=== PATIENT | female | born 1945 | race African-American/Black ===

== ENCOUNTER 2020-08-31 14:23 | Inpatient (IN) | payer MEDICARE, MEDICAID ==
[~2020-08-31] VITALS: Ht 170.2 cm; Wt 85.3 kg
[~2020-08-31 14:23] MED LIST: AMLO5TAB88 MT; ATOR20TA65 MT; MECL-159 MT; METF-414 MT
[2020-08-31 15:45] LABS: HEMATOCRIT. 35.1 % (36.0-48.0); HEMOGLOBIN. 11.7 g/dL (12.0-16.0); LYMPHOCYTES % 36.8 % (20.0-50.0); MEAN CORPUSCULAR HEMOGLOBIN 30.1 pg (28.0-32.0); MEAN CORPUSCULAR VOLUME 90.6 fL (81.0-99.0); MEAN PLATELET VOLUME 8.1 fl (7.4-10.4); MONOCYTES % 7.8 % (2.0-8.0); NEUTROPHILS % 53.4 % (40.0-76.0); PLATELET 97 x1000/uL (130-400); RED BLOOD CELL COUNT 3.87 mill/uL (4.2-5.4); RED CELL DISTRIBUTION WIDTH 15.1 % (11.6-14.6)
[2020-08-31 15:51] LABS: CHLORIDE 108 mEq/L (98-107)
[2020-08-31 15:56] LABS: PROTHROMBIN TIME 10.3 sec (9.6-11.0)
[2020-08-31] MEDS ORDERED: FUROSEMIDE 20MG TABLET PO ONE (18:00)
[2020-08-31] MEDS ORDERED: ONDANSETRON HCL 4MG/2ML INJ IV PRN (22:00)
[2020-08-31] MEDS ORDERED: MORPHINE SULFATE 2 MG/ML CPJ (NOT FOR IM USE) IV PRN (22:00)
[2020-08-31] MEDS ORDERED: MAGNESIUM/ALUMINUM HYDROXIDE/SIMETHICONE 30ML UDC PO PRN (22:00)
[2020-08-31] MEDS ORDERED: ACETAMINOPHEN 325MG TABLET PO PRN (22:00)
[2020-08-31] MEDS ORDERED: DOCUSATE SODIUM 100MG CAPSULE PO PRN (22:00)
[2020-08-31] MEDS ORDERED: CLONIDINE 0.1MG TABLET PO PRN (22:00)
[2020-08-31] MEDS ORDERED: HYDROCODONE/ACETAMINOPHEN 5/325MG TABLET PO PRN (22:00)
[2020-08-31] MEDS ORDERED: DEXTROSE 50% WATER 50ML SYRINGE IV PRN (22:00)
[2020-08-31] MEDS ORDERED: DIPHENHYDRAMINE 50MG/ML VIAL IV PRN (22:00)
[2020-08-31] MEDS ORDERED: GUAIFENESIN 200MG/10ML SUGAR FREE UDC PO PRN (22:00)
[2020-08-31] MEDS ORDERED: HYDRALAZINE 20MG/ML VIAL IV PRN (22:00)
[2020-08-31] MEDS ORDERED: IPRATROPIUM/ALBUTEROL 0.5-3(2.5)MG/3ML NEB HHN PRN (22:00)
[2020-08-31 22:03] LABS: CLARITY URINE CLOUDY (CLEAR); COLOR URINE YELLOW (YELLOW); KETONES URINE NEGATIVE (NEGATIVE); LEUKOCYTE ESTERASE URINE 3+ (NEGATIVE); NITRITE URINE NEGATIVE (NEGATIVE); OCCULT BLOOD URINE TRACE (NEGATIVE); PROTEIN URINE TRACE (NEGATIVE); SPECIFIC GRAVITY URINE 1.012 (1.005-1.030); UROBILINOGEN URINE 0.2 E.U./dL (0.2-1.0)
[2020-08-31 22:12] LABS: OPIATES URINE SCREEN NEGATIVE (NEGATIVE)
[2020-08-31 22:14] LABS: *AMPHETAMINES SCREEN URINE NEGATIVE (NEGATIVE); *BARBITURATES SCREEN URINE NEGATIVE (NEGATIVE); *BENZODIAZEPINES SCREEN URINE NEGATIVE (NEGATIVE); *COCAINE SCREEN URINE NEGATIVE (NEGATIVE); CANNABINOID URINE SCREEN NEGATIVE (NEGATIVE); METHADONE URINE SCREEN NEGATIVE (NEGATIVE); PHENCYCLIDINE URINE SCREEN NEGATIVE (NEGATIVE)
[2020-08-31] MEDS: SODIUM CHLORIDE 0.9% INJ 3ML FLUSH IVF SCH (22:17)
[2020-09-01] MEDS: SODIUM CHLORIDE 0.9% INJ 3ML FLUSH IVF SCH ×3 (06:15→21:39)
[2020-09-01] MEDS: BLOOD SUGAR DIAGNOSTIC STRIP TEST SCH ×4 (06:18→21:39)
[2020-09-01] MEDS: INSULIN LISPRO 100 UNITS/ML SUBCUT SCH ×4 (06:23→21:45)
[2020-09-01] MEDS ORDERED: ENOXAPARIN 40MG/0.4ML SYR SUBCUT SCH (09:00)
[2020-09-01 11:06] VITALS: BP 156/72
[2020-09-01] MEDS ORDERED: ASPI-1497 PO (11:25)
[2020-09-01 12:00] VITALS: BP 159/83
[2020-09-01 14:51] LABS: BASOPHILS % 0.8 % (0.0-2.0); EOSINOPHILS % 1.7 % (0.0-5.0); HEMATOCRIT. 31.3 % (36.0-48.0); HEMOGLOBIN. 10.6 g/dL (12.0-16.0); LYMPHOCYTES % 30.4 % (20.0-50.0); MEAN CORPUSCULAR HEMOGLOBIN 30.7 pg (28.0-32.0); MEAN CORPUSCULAR VOLUME 90.8 fL (81.0-99.0); MEAN PLATELET VOLUME 7.9 fl (7.4-10.4); MONOCYTES % 7.1 % (2.0-8.0); PLATELET 83 x1000/uL (130-400); RED BLOOD CELL COUNT 3.45 mill/uL (4.2-5.4); RED CELL DISTRIBUTION WIDTH 15.3 % (11.6-14.6)
[2020-09-01 15:06] LABS: CHLORIDE 110 mEq/L (98-107)
[2020-09-01 15:16] LABS: CREATINE KINASE 69 IU/L (26-192)
[2020-09-01 15:18] LABS: CREATINE KINASE MB FRACTION 1.1 ng/mL (0.5-3.6)
[2020-09-01 16:00] VITALS: BP 144/74
[2020-09-01 17:54] LABS: T4 FREE 1.07 ng/dL (0.76-1.46)
[2020-09-01 20:00] VITALS: BP 143/75
[2020-09-01] MEDS: LORAZEPAM 2MG/ML CPJ IV PRN (22:16)
[2020-09-02] VITALS: BP 137/73
[2020-09-02 04:00] VITALS: BP 128/63
[2020-09-02] MEDS: BLOOD SUGAR DIAGNOSTIC STRIP TEST SCH ×4 (05:54→20:48)
[2020-09-02] MEDS: SODIUM CHLORIDE 0.9% INJ 3ML FLUSH IVF SCH ×3 (05:54→21:25)
[2020-09-02] MEDS: INSULIN LISPRO 100 UNITS/ML SUBCUT SCH ×4 (06:18→20:49)
[2020-09-02 08:00] VITALS: BP 131/75
[2020-09-02 12:00] VITALS: BP 146/79
[2020-09-02 16:00] VITALS: BP 151/80
[2020-09-02 20:00] VITALS: BP 143/78
[2020-09-02] MEDS: LORAZEPAM 2MG/ML CPJ IV PRN (22:20)
[2020-09-03] VITALS: BP 141/70
[2020-09-03 04:00] VITALS: BP 138/75
[2020-09-03] MEDS: SODIUM CHLORIDE 0.9% INJ 3ML FLUSH IVF SCH ×2 (05:07→14:00)
[2020-09-03] MEDS: BLOOD SUGAR DIAGNOSTIC STRIP TEST SCH ×2 (06:16→11:45)
[2020-09-03] MEDS: INSULIN LISPRO 100 UNITS/ML SUBCUT SCH ×2 (06:17→12:15)
[2020-09-03 07:55] LABS: BASOPHILS % 0.6 % (0.0-2.0); EOSINOPHILS % 2.3 % (0.0-5.0); HEMATOCRIT. 31.7 % (36.0-48.0); HEMOGLOBIN. 10.6 g/dL (12.0-16.0); LYMPHOCYTES % 37.3 % (20.0-50.0); MEAN CORPUSCULAR HEMOGLOBIN 30.3 pg (28.0-32.0); MEAN CORPUSCULAR VOLUME 90.8 fL (81.0-99.0); MEAN PLATELET VOLUME 7.9 fl (7.4-10.4); MONOCYTES % 7.7 % (2.0-8.0); NEUTROPHILS % 52.1 % (40.0-76.0); PLATELET 80 x1000/uL (130-400); RED CELL DISTRIBUTION WIDTH 15.3 % (11.6-14.6)
[2020-09-03 07:57] LABS: CHLORIDE 111 mEq/L (98-107)
[2020-09-03 08:00] VITALS: BP 146/79
[2020-09-03] MEDS ORDERED: LOSARTAN POTASSIUM 25 MG TABLET PO SCH (09:15)
[2020-09-03] MEDS ORDERED: ASPIRIN 81MG EC TABLET PO SCH (09:15)
[2020-09-03 12:00] VITALS: BP 136/81
[2020-09-03] MEDS ORDERED: CARVEDILOL 3.125 MG TABLET PO SCH (21:00)
== END 2020-09-03 16:15 | disposition home health service (06) | DRG 291 ==
LOC: ER 14:40 → MICUSO 18:48 → 5WST 09-01 08:51
PROVIDERS: ADMIT Internal Medicine; ATTEND Internal Medicine
DX: I11.0 Hypertensive heart disease with heart failure (principal); I50.21 Acute systolic (congestive) heart failure; R53.1 Weakness; D64.9 Anemia, unspecified; R42 Dizziness and giddiness; E11.9 Type 2 diabetes mellitus without complications; D69.6 Thrombocytopenia, unspecified; Z95.2 Presence of prosthetic heart valve; Z79.82 Long term (current) use of aspirin; Z79.84 Long term (current) use of oral hypoglycemic drugs; Z79.899 Other long term (current) drug therapy; M71.20 Synovial cyst of popliteal space [Baker], unspecified knee; R82.71 Bacteriuria
CPT/HCPCS: 36415; 71045; 80048; 80053; 80061; 80305; 81003; 82550; 82553; 82962; 83880; 84439; 84443; 84484; 85025; 85379; 93005; 93306; 93970; 97162; 97535; 99285; A6261; J1200; J1815; J2060

== ENCOUNTER 2020-11-16 07:33 | Emergency (ER) | payer MEDICARE, MEDICAID ==
[~2020-11-16] VITALS: Ht 165.1 cm; Wt 90.0 kg
[~2020-11-16 07:33] MED LIST changes: +ASPI-1497 PO
[2020-11-16 09:53] LABS: EOSINOPHILS % 0.7 % (0.0-5.0); HEMATOCRIT. 34.7 % (36.0-48.0); HEMOGLOBIN. 11.7 g/dL (12.0-16.0); LYMPHOCYTES % 25.6 % (20.0-50.0); MEAN CORPUSCULAR VOLUME 89.1 fL (81.0-99.0); MONOCYTES % 5.3 % (2.0-8.0); NEUTROPHILS % 66.4 % (40.0-76.0); RED CELL DISTRIBUTION WIDTH 16.7 % (11.6-14.6)
[2020-11-16 10:01] LABS: CHLORIDE 109 mEq/L (98-107)
[2020-11-16 10:56] LABS: PLATELET 127 x1000/uL (130-400)
[2020-11-16 12:50] VITALS: BP 145/71
== END 2020-11-16 13:00 | disposition left against medical advice (07) ==
LOC: ER 07:40
DX: R55 Syncope and collapse (principal); R42 Dizziness and giddiness; R11.0 Nausea; E11.9 Type 2 diabetes mellitus without complications; I10 Essential (primary) hypertension; Z98.890 Other specified postprocedural states; Z79.899 Other long term (current) drug therapy
CPT/HCPCS: 36415; 71045; 80053; 83880; 84484; 85025; 93005; 99285

== ENCOUNTER 2021-03-04 19:21 | Inpatient (IN) | payer MEDICARE, MEDICAID ==
[~2021-03-04] VITALS: Ht 170.2 cm; Wt 77.0 kg
[2021-03-04 21:34] LABS: BASOPHILS % 1.3 % (0.0-2.0); EOSINOPHILS % 0.5 % (0.0-5.0); HEMATOCRIT. 33.6 % (36.0-48.0); HEMOGLOBIN. 11.3 g/dL (12.0-16.0); LYMPHOCYTES % 23.3 % (20.0-50.0); MEAN CORPUSCULAR HEMOGLOBIN 30.6 pg (28.0-32.0); MEAN CORPUSCULAR VOLUME 90.9 fL (81.0-99.0); MEAN PLATELET VOLUME 7.8 fl (7.4-10.4); MONOCYTES % 6.7 % (2.0-8.0); NEUTROPHILS % 68.2 % (40.0-76.0); PLATELET 132 x1000/uL (130-400); RED BLOOD CELL COUNT 3.69 mill/uL (4.2-5.4); RED CELL DISTRIBUTION WIDTH 15.9 % (11.6-14.6)
[2021-03-04 21:39] LABS: CHLORIDE 108 mEq/L (98-107)
[2021-03-05] VITALS (7 sets, daily range): BP systolic 138–162; BP diastolic 74–87
[2021-03-05] MEDS ORDERED: ONDANSETRON HCL 4MG/2ML INJ IV PRN (05:30)
[2021-03-05] MEDS ORDERED: CLONIDINE 0.1MG TABLET PO PRN (05:30)
[2021-03-05] MEDS ORDERED: ACETAMINOPHEN 325MG TABLET PO PRN (05:30)
[2021-03-05] MEDS ORDERED: GUAIFENESIN 200MG/10ML SUGAR FREE UDC PO PRN (05:30)
[2021-03-05] MEDS ORDERED: MAGNESIUM/ALUMINUM HYDROXIDE/SIMETHICONE 30ML UDC PO PRN (05:30)
[2021-03-05] MEDS ORDERED: DOCUSATE SODIUM 100MG CAPSULE PO PRN (07:00)
[2021-03-05] MEDS: ENOXAPARIN 40MG/0.4ML SYR SUBCUT SCH (08:24)
[2021-03-05] MEDS ORDERED: DEXTROSE 50% WATER 50ML SYRINGE IV PRN (08:45)
[2021-03-05] MEDS: BLOOD SUGAR DIAGNOSTIC STRIP TEST SCH ×4 (09:27→20:05)
[2021-03-05] MEDS: AMLODIPINE 10MG TABLET PO SCH (09:31)
[2021-03-05] MEDS ORDERED: MECLIZINE 25MG TABLET PO PRN (10:15)
[2021-03-05] MEDS: INSULIN LISPRO (HIGH DOSE) 100 UNITS/ML SUBCUT SCH ×3 (12:19→20:06)
[2021-03-05] MEDS: METFORMIN HCL 500MG TABLET PO SCH (17:07)
[2021-03-05] MEDS ORDERED: ATORVASTATIN CALCIUM 20MG TABLET PO SCH (21:00)
[2021-03-06] VITALS: BP_SYST 138; BP_SYST 148; BP_SYST 157; BP_DIAS 90
[2021-03-06] MEDS: BLOOD SUGAR DIAGNOSTIC STRIP TEST SCH (00:44)
[2021-03-06] MEDS: INSULIN LISPRO (HIGH DOSE) 100 UNITS/ML SUBCUT SCH (00:44)
[2021-03-06 04:00] VITALS: BP 140/78
[2021-03-06 08:00] VITALS: BP_SYST 146; BP_SYST 156; BP_SYST 159; BP_DIAS 62; BP_DIAS 81; BP_DIAS 90
[2021-03-06 08:06] LABS: BASOPHILS % 1.9 % (0.0-2.0); EOSINOPHILS % 0.9 % (0.0-5.0); HEMATOCRIT. 33.3 % (36.0-48.0); HEMOGLOBIN. 11.1 g/dL (12.0-16.0); LYMPHOCYTES % 36.4 % (20.0-50.0); MEAN CORPUSCULAR HEMOGLOBIN 30.8 pg (28.0-32.0); MEAN CORPUSCULAR VOLUME 92.3 fL (81.0-99.0); MONOCYTES % 7.6 % (2.0-8.0); NEUTROPHILS % 53.2 % (40.0-76.0); PLATELET 115 x1000/uL (130-400); RED BLOOD CELL COUNT 3.61 mill/uL (4.2-5.4); RED CELL DISTRIBUTION WIDTH 16.2 % (11.6-14.6)
[2021-03-06 08:18] LABS: CHLORIDE 109 mEq/L (98-107)
[2021-03-06 08:38] LABS: HDL CHOLESTEROL 56 mg/dL (40-59); LDL CHOLESTEROL 61 mg/dL (5-100); T4 FREE 1.05 ng/dL (0.76-1.46)
[2021-03-06] MEDS: ENOXAPARIN 40MG/0.4ML SYR SUBCUT SCH (09:02)
[2021-03-06] MEDS: METFORMIN HCL 500MG TABLET PO SCH (09:02)
[2021-03-06] MEDS: AMLODIPINE 10MG TABLET PO SCH (09:02)
[2021-03-06 11:23] VITALS: BP 146/90
== END 2021-03-06 13:05 | disposition home health service (06) | DRG 74 ==
LOC: ER 19:21 → 8WST 22:53 → EDBEDREQTM 22:55 → EDBEDREQ 22:55 → ENRESERV 03-05 07:55
PROVIDERS: ADMIT Hospitalist; ATTEND Hospitalist
DX: G90.8 Other disorders of autonomic nervous system (principal); E11.9 Type 2 diabetes mellitus without complications; D63.8 Anemia in other chronic diseases classified elsewhere; I10 Essential (primary) hypertension; E78.00 Pure hypercholesterolemia, unspecified; Z79.82 Long term (current) use of aspirin; Z95.2 Presence of prosthetic heart valve; Z79.84 Long term (current) use of oral hypoglycemic drugs; Z79.899 Other long term (current) drug therapy
CPT/HCPCS: 36415; 71045; 80053; 80061; 82962; 83036; 83880; 84439; 84443; 84484; 85025; 93005; 93306; 93970; 97162; 99285; J1650

== ENCOUNTER 2021-11-06 14:42 | Emergency (ER) | payer MEDICAID, MEDICARE ==
[~2021-11-06] VITALS: Ht 170.2 cm; Wt 73.0 kg
[2021-11-06] MEDS ORDERED: ONDANSETRON HCL 4MG/2ML INJ IV STA (15:19)
[2021-11-06] MEDS ORDERED: SODIUM CHLORIDE 0.9% 1,000 ML IV ONE (15:30)
[2021-11-06 15:45] LABS: BASOPHILS % 2.4 % (0.0-2.0); EOSINOPHILS % 0.6 % (0.0-5.0); HEMATOCRIT. 36.5 % (36.0-48.0); HEMOGLOBIN. 12.1 g/dL (12.0-16.0); LYMPHOCYTES % 37.7 % (20.0-50.0); MEAN CORPUSCULAR HEMOGLOBIN 29.8 pg (28.0-32.0); MEAN CORPUSCULAR VOLUME 89.9 fL (81.0-99.0); MEAN PLATELET VOLUME 7.9 fl (7.4-10.4); MONOCYTES % 5.2 % (2.0-8.0); NEUTROPHILS % 54.1 % (40.0-76.0); PLATELET 124 x1000/uL (130-400); RED BLOOD CELL COUNT 4.05 mill/uL (4.2-5.4); RED CELL DISTRIBUTION WIDTH 17.1 % (11.6-14.6)
[2021-11-06 15:53] LABS: CHLORIDE 105 mEq/L (98-107)
[2021-11-07 00:15] VITALS: BP 135/70
== END 2021-11-07 00:45 | disposition home or self-care (01) ==
LOC: ER 14:42
DX: R55 Syncope and collapse (principal); E86.0 Dehydration; Z20.822 Contact with and (suspected) exposure to COVID-19; R53.1 Weakness; R32 Unspecified urinary incontinence; R11.10 Vomiting, unspecified; E11.9 Type 2 diabetes mellitus without complications; I10 Essential (primary) hypertension; R10.9 Unspecified abdominal pain; E87.2 Acidosis
CPT/HCPCS: 36415; 71045; 80053; 83605; 83690; 83880; 84484; 85025; 87426; 96361; 96374; 99283; C9803; J2405; J7030